=== PATIENT | male | born 1960 | race Caucasian/White ===

== ENCOUNTER 2023-03-18 10:56 | Inpatient (IN) | payer OTHER ==
[2023-03-18] MEDS ORDERED: ASPIRIN 81 MG CHEWABLE TABLETS PO ONE (11:19)
[2023-03-18] MEDS ORDERED: ACETAMINOPHEN 1000 MG/100 ML BAG IVPB ONE (12:04)
[2023-03-18 12:07] LABS: BASO % 0.9 % (0-2.0); EOS % 3.5 % (0-4.5); HEMATOCRIT 45.1 % (35.4-49); HEMOGLOBIN 15.4 GM/dL (11.7-16.9); LYMPH % 30.8 % (8-40); MCH 30.5 pg (25.7-33.7); MEAN CELL VOLUME 89.8 fl (80-96); MEAN PLT VOLUME 8.9 fl (7.5-11.1); MONO % 10.2 % (3.8-10.2); NEUT % 54.6 % (42.8-82.8); PLATELET COUNT 231 10^3/uL (134-434); RBC 5.03 M/mm3 (4.00-5.60); RDW 12.9 % (11.9-15.9); WHITE BLOOD COUNT 6.7 K/mm3 (4.0-10.0)
[2023-03-18] MEDS ORDERED: ASPIRIN 81 MG CHEWABLE TABLETS ONE (12:07)
[2023-03-18] MEDS ORDERED: ACETAMINOPHEN INJECTION 100 ML IVPB ONE (12:07)
[2023-03-18 12:13] LABS: INR 1.09 (0.83-1.09); PROTHROMBIN TIME (PATIENT) 12.6 SEC (9.7-13.0)
[2023-03-18 12:15] LABS: ACTIVATED PTT 34.5 SECONDS (25.2-36.5)
[2023-03-18 12:32] LABS: ALBUMIN 3.4 g/dl (3.4-5.0); BLOOD UREA NITROGEN 13.3 mg/dL (7-18); CALCIUM 8.9 mg/dL (8.5-10.1); MAGNESIUM 2.2 mg/dL (1.8-2.4)
[2023-03-18 12:35] LABS: CREATININE 0.9 mg/dL (0.55-1.3)
[2023-03-18 12:36] LABS: BILIRUBIN,TOTAL 0.5 mg/dL (0.2-1)
[2023-03-18 12:38] LABS: TOT PROT 6.7 g/dl (6.4-8.2)
[2023-03-18 13:01] LABS: PHOSPHOROUS 2.7 mg/dL (2.5-4.9)
[2023-03-18 20:28] VITALS: BMI 27.4
[2023-03-18] MEDS: TICAGRELOR 90 MG TABLET PO SCH (22:50)
[2023-03-19 03:14] VITALS: RESP 18
[2023-03-19 07:25] VITALS: BP 121/82; PULSE 50; TEMP 97.8
[2023-03-19 07:50] LABS: BASO % 0.7 % (0-2.0); EOS % 3.8 % (0-4.5); HEMATOCRIT 47.3 % (35.4-49); HEMOGLOBIN 15.7 GM/dL (11.7-16.9); LYMPH % 28.5 % (8-40); MCH 30.4 pg (25.7-33.7); MCHC 33.2 g/dl (32.0-35.9); MEAN CELL VOLUME 91.4 fl (80-96); MEAN PLT VOLUME 9.9 fl (7.5-11.1); MONO % 10.7 % (3.8-10.2); NEUT % 56.3 % (42.8-82.8); PLATELET COUNT 244 10^3/uL (134-434); RBC 5.17 M/mm3 (4.00-5.60); RDW 12.8 % (11.9-15.9); WHITE BLOOD COUNT 7.6 K/mm3 (4.0-10.0)
[2023-03-19 08:03] LABS: CALCIUM 9.2 mg/dL (8.5-10.1)
[2023-03-19 08:04] LABS: ALBUMIN 3.5 g/dl (3.4-5.0); BLOOD UREA NITROGEN 13.6 mg/dL (7-18)
[2023-03-19 08:08] LABS: CREATININE 0.9 mg/dL (0.55-1.3)
[2023-03-19 08:09] LABS: BILIRUBIN,TOTAL 0.6 mg/dL (0.2-1); TOT PROT 6.7 g/dl (6.4-8.2)
[2023-03-19] MEDS: TICAGRELOR 90 MG TABLET PO SCH (10:18)
== END 2023-03-19 10:52 | disposition home or self-care (01) | DRG 198 ==
LOC: JER 10:56 → JERBED 16:20 → J4W 20:56 → OBSVTOIN 03-19 07:27
PROVIDERS: ADMIT Family Medicine; ATTEND Family Medicine
DX: R07.89 Other chest pain (principal); I25.10 Atherosclerotic heart disease of native coronary artery without angina pectoris; I10 Essential (primary) hypertension; E78.5 Hyperlipidemia, unspecified; Z95.5 Presence of coronary angioplasty implant and graft
CPT/HCPCS: 36415; 70450-TC; 71045-TC-FY; 72125-TC; 80053; 80061; 82550; 82553; 82962; 83735; 84100; 84443; 84484; 85025; 85610; 85730; 93005; 93010; 93306-TC; 93971; G0378

== ENCOUNTER 2023-05-05 12:52 | Emergency (ER) | payer OTHER ==
[2023-05-05 12:54] VITALS: BP 119/84; PULSE 75; RESP 18; TEMP 98.2; BMI 25.1
== END 2023-05-05 14:07 | disposition home or self-care (01) ==
LOC: JERFT 12:52
DX: R21 Rash and other nonspecific skin eruption (principal); L08.9 Local infection of the skin and subcutaneous tissue, unspecified
CPT/HCPCS: 99282-25